=== PATIENT | male | born 1965 | race African-American/Black ===

== ENCOUNTER 2021-07-12 07:40 | Inpatient (IN) ==
[2021-07-12] MEDS ORDERED: Ondansetron ODT 4 MG TAB.RAPDIS SL ONE (08:11)
[2021-07-12] MEDS ORDERED: *HR* FentaNYL (PF) 100 MCG/2 ML VIAL IVP ONE (09:28)
[2021-07-12 09:55] LABS: Basophils % 0.2 %; Eosinophils # 0.1 K/mcL (0.0-0.6); Eosinophils % 1.8 %; Hematocrit 40.8 % (37.5-50.1); Hemoglobin 13.7 g/dL (12.9-16.9); Immature Granulocytes % 0.2 % (0-4); Lymphocytes # 0.9 K/mcL (0.6-4.6); Lymphocytes % 19.4 %; Mean Corpuscular HGB Conc 33.6 g/dL (31.6-35.5); Mean Corpuscular Hemoglobin 30.7 pg (28.0-33.3); Mean Corpuscular Volume 91.5 fL (83.0-100.0); Mean Platelet Volume 9.3 fL (9.4-12.4); Monocytes # 0.5 K/mcL (0.0-1.3); Monocytes % 10.7 %; Platelet Count 195 K/mcL (140-400); Red Blood Count 4.46 M/mcL (4.19-5.50); Red Cell Distribution Width 13.9 % (11.5-14.5); Segmented Neutrophils % 67.7 %; White Blood Count 4.5 K/mcL (4.3-11.1)
[2021-07-12 10:08] LABS: INR 1.2; Prothrombin Time 12.9 Seconds (9.4-12.1)
[2021-07-12 10:10] LABS: Activated Partial Thrombo Time 34.5 Seconds (26.0-36.0); BUN/Creatinine Ratio 17 (6-26); Blood Urea Nitrogen 17 mg/dL (6-20); Calcium 10.1 mg/dL (8.6-10.3); Carbon Dioxide 34 mEq/L (23-29); Chloride 97 mEq/L (98-107); Glucose 105 mg/dL (70-105); Osmolality,Calculated 286 (280-300); Potassium 3.5 mEq/L (3.5-5.1); Sodium 137 mEq/L (136-145); eGFR For African Americans > 60 (> 60); eGFR For Non-African Americans > 60 (> 60)
[2021-07-12] MEDS ORDERED: 0.9 % Sodium Chloride 1,000 ML IVC ONE (10:35)
[2021-07-12] MEDS ORDERED: Ondansetron 4 MG/2 ML VIAL IVP PRN ×3 (11:11→16:09)
[2021-07-12] MEDS ORDERED: 0.9 % Sodium Chloride 1,000 ML IVC SCH (11:15)
[2021-07-12] MEDS ORDERED: CeFAZolin 2 GM/100 ML BAG IVPB ONE (11:30)
[2021-07-12] MEDS ORDERED: Lidocaine -MPF 2% 5 ML VIAL ONE (12:49)
[2021-07-12] MEDS ORDERED: *HR* Propofol 200 MG/20 ML VIAL IVP ONE (12:49)
[2021-07-12] MEDS ORDERED: *HR* Rocuronium Bromide 50 MG/5 ML VIAL ONE ×2 (12:49→15:38)
[2021-07-12] MEDS ORDERED: Ondansetron 4 MG/2 ML VIAL ONE (12:49)
[2021-07-12] MEDS ORDERED: Lidocaine -MPF 4% 5 ML AMPUL ONE (12:49)
[2021-07-12] MEDS ORDERED: *HR* FentaNYL (PF) 100 MCG/2 ML VIAL ONE ×2 (13:27→15:39)
[2021-07-12] MEDS ORDERED: *HR* Midazolam HCl 2 MG/2 ML VIAL ONE (13:27)
[2021-07-12] MEDS ORDERED: *HR* Meperidine 25 MG/ML SYRINGE IVP PRN (13:55)
[2021-07-12] MEDS ORDERED: *HR* HYDROmorphone PF 0.5 MG/0.5 ML SYRINGE IVP PRN (13:55)
[2021-07-12] MEDS ORDERED: Albuterol 2.5 MG/3 ML NEBULIZER IH PRN (13:55)
[2021-07-12] MEDS ORDERED: Haloperidol Lactate 5 MG/ML VIAL ONE (13:57)
[2021-07-12] MEDS ORDERED: *HR* HYDROMORPHONE 2 MG/ML VIAL ONE (16:16)
[2021-07-12] MEDS ORDERED: *HR* Labetalol 20 MG/4 ML SYRINGE IVP ONE (16:19)
[2021-07-12] MEDS ORDERED: Sugammadex Sodium 200 MG/2 ML VIAL IV ONE (16:39)
[2021-07-12] MEDS: Ketorolac 30 MG/ML VIAL IVP SCH (17:24)
[2021-07-12] MEDS: 0.9 % Sodium Chloride 1,000 ML IVC SCH (17:26)
[2021-07-12] MEDS: Acetaminophen IV 1,000 MG/100 ML BAG IVPB SCH (17:37)
[2021-07-12] MEDS: ceFAZolin 1,000 MG in Water for inj. (sterile) 10 ML IVP SCH (18:03)
[2021-07-13] MEDS: ceFAZolin 1,000 MG in Water for inj. (sterile) 10 ML IVP SCH ×4 (00:20→23:47)
[2021-07-13] MEDS: Ketorolac 30 MG/ML VIAL IVP SCH ×5 (00:22→23:46)
[2021-07-13] MEDS: Acetaminophen IV 1,000 MG/100 ML BAG IVPB SCH ×5 (00:22→23:48)
[2021-07-13] MEDS: 0.9 % Sodium Chloride 1,000 ML IVC SCH (04:53)
[2021-07-13 07:00] LABS: Basophils % 0.2 %; Eosinophils # 0.1 K/mcL (0.0-0.6); Eosinophils % 1.4 %; Hematocrit 32.2 % (37.5-50.1); Immature Granulocytes % 0.5 % (0-4); Lymphocytes # 0.8 K/mcL (0.6-4.6); Lymphocytes % 18.1 %; Mean Corpuscular HGB Conc 33.5 g/dL (31.6-35.5); Mean Corpuscular Hemoglobin 31.1 pg (28.0-33.3); Mean Corpuscular Volume 92.8 fL (83.0-100.0); Mean Platelet Volume 9.5 fL (9.4-12.4); Monocytes # 0.6 K/mcL (0.0-1.3); Monocytes % 13.3 %; Neutrophils # 2.9 K/mcL (1.6-8.9); Platelet Count 159 K/mcL (140-400); Red Blood Count 3.47 M/mcL (4.19-5.50); Segmented Neutrophils % 66.5 %; White Blood Count 4.4 K/mcL (4.3-11.1)
[2021-07-13 07:01] LABS: Hemoglobin 10.8 g/dL (12.9-16.9)
[2021-07-13 07:19] LABS: BUN/Creatinine Ratio 17 (6-26); Blood Urea Nitrogen 15 mg/dL (6-20); Calcium 8.5 mg/dL (8.6-10.3); Carbon Dioxide 26 mEq/L (23-29); Chloride 103 mEq/L (98-107); Glucose 88 mg/dL (70-105); Magnesium 1.9 mg/dL (1.6-2.6); Osmolality,Calculated 284 (280-300); Phosphorous 3.2 mg/dL (2.7-4.5); Potassium 3.5 mEq/L (3.5-5.1); Sodium 137 mEq/L (136-145); eGFR For African Americans > 60 (> 60); eGFR For Non-African Americans > 60 (> 60)
[2021-07-13] MEDS ORDERED: methocarbamoL 750 MG TABLET PO PRN (08:51)
[2021-07-13] MEDS: Gabapentin 100 MG CAPSULE PO SCH ×3 (12:07→20:00)
[2021-07-13] MEDS: *HR* Heparin 5,000 UNIT/ML VIAL SQ SCH ×3 (12:07→20:01)
[2021-07-14] MEDS: Acetaminophen IV 1,000 MG/100 ML BAG IVPB SCH ×2 (05:44→13:08)
[2021-07-14] MEDS: Ketorolac 30 MG/ML VIAL IVP SCH ×2 (05:44→13:08)
[2021-07-14] MEDS: *HR* Heparin 5,000 UNIT/ML VIAL SQ SCH ×2 (06:29→14:32)
[2021-07-14] MEDS: ceFAZolin 1,000 MG in Water for inj. (sterile) 10 ML IVP SCH (09:28)
[2021-07-14] MEDS: Gabapentin 100 MG CAPSULE PO SCH (09:30)
[2021-07-14 11:58] VITALS: BP 131/89; PULSE 84; TEMP 97.5; O2SAT 93
== END 2021-07-14 14:47 | disposition home or self-care (01) | DRG 228 ==
LOC: EMEROOARM 07:40 → 3ANU 07:40
PROVIDERS: ADMIT Surgery; ATTEND Surgery